=== PATIENT | female | born 1945 | race Caucasian/White ===

== ENCOUNTER 2018-04-28 16:16 | Inpatient (IN) | payer MEDICARE, OTHER ==
[~2018-04-28] VITALS: Ht 160 cm; Wt 81.7 kg
[~2018-04-28 16:16] MED LIST: ACET325 PO; ASPI325 PO; CEPH250A PO; CEPH500 PO; CIME400 PO; COLCRYS0.6 MG PO; Cipro500 MG PO; FERR325 PO; FLUO20 PO; FLUOXETINE PO; Flagyl500 MG PO; HYDACE5325 PO; HYDCHL12.5 PO; IRON PO; IRON325 MG PO; L-THYROXINE PO; LEVSOD100 PO; LISI20 PO; LOPE2C PO; LOVA20 PO; LOVA40 PO; Levothyroxine200 MCG PO; NAPR500 PO; Norco 5-325 Ta1 EACH PO; OMEP20ER PO; POTA8 PO; POTASSIUM GLU2.5 MEQ PO; PROM25 PO; Prednisone20 MG PO; Prozac20 MG PO; [UNRECOGNIZED DRUG - OTHER] PO
[2018-05-04 04:41] LABS: BASOPHILS ABSOLUTE AUTO 0.02 K/mm3 (0.00-0.23); BASOPHILS PERCENT AUTO 0 % (0-2); EOSINOPHILS PERCENT AUTO 0 % (0-6); Hematocrit 28.7 % (33.0-51.0); Hemoglobin 9.4 g/dL (11.5-16.0); IMMATURE GRAN ABSOLUTE AUTO 0.03 K/mm3 (0.00-0.10); IMMATURE GRAN PERCENT AUTO 0 % (0-1); LYMPHOCYTES ABSOLUTE AUTO 0.92 K/mm3 (0.84-5.20); LYMPHOCYTES PERCENT AUTO 8 % (21-46); MONOCYTES ABSOLUTE AUTO 0.66 K/mm3 (0.16-1.47); MONOCYTES PERCENT AUTO 6 % (4-13); Mean Corpuscular HGB 29.1 pg (26.0-34.0); Mean Corpuscular HGB Conc 32.8 g/dL (31.5-36.5); Mean Corpuscular Volume 89 fL (80-100); Mean Platelet Volume 9.3 fL (9.1-12.4); NEUTROPHILS ABSOLUTE AUTO 10.05 K/mm3 (1.96-9.15); NEUTROPHILS PERCENT AUTO 86 % (41-73); Platelet Count 267 K/mm3 (150-400); RDW Coefficient Variation 13.9 % (11.7-14.2); RDW Standard Deviation 45.3 fL (35.1-46.3); Red Blood Cell Count 3.23 M/mm3 (3.80-5.20); White Blood Cell Count 11.68 K/mm3 (4.00-11.30)
[2018-05-04 04:58] LABS: Anion Gap 6 mmol/L (6-16); Blood Urea Nitrogen 17 mg/dL (8-24); Bun/Creatinine Ratio 21.8 (12.0-20.0); CO2, Blood 29 mmol/L (21-32); Calcium, Blood 8.4 mg/dL (8.5-10.1); Chloride, Blood 102 mmol/L (98-108); Creatinine, Blood 0.78 mg/dL (0.40-1.00); Glomerular Filtration Rate >60 (60-); Glucose, Blood 116 mg/dL (70-99); Potassium, Blood 3.2 mmol/L (3.5-5.5); Sodium, Blood 137 mmol/L (136-145)
[2018-05-04] MEDS ORDERED: XARELTO10 MG PO (13:30)
[2018-05-04] MEDS ORDERED: OXYC5 PO (13:31)
== END 2018-05-04 16:03 | disposition home or self-care (01) | DRG 470 ==
LOC: SURS 05-03 07:04 → PRE IP 05-03 08:30 → SURS 05-03 12:30
PROVIDERS: Orthopaedic Surgery
PROC: 0SR902Z Replacement of Right Hip Joint with Metal on Polyethylene Synthetic Substitute, Open Approach (ICD-10-PCS; principal; 2018-05-03 08:30)
DX: M16.11 Unilateral primary osteoarthritis, right hip (principal); E78.5 Hyperlipidemia, unspecified; E03.9 Hypothyroidism, unspecified; I12.9 Hypertensive chronic kidney disease with stage 1 through stage 4 chronic kidney disease, or unspecified chronic kidney disease; K21.9 Gastro-esophageal reflux disease without esophagitis; D64.9 Anemia, unspecified; I73.9 Peripheral vascular disease, unspecified; N18.3 Chronic kidney disease, stage 3 (moderate); F17.210 Nicotine dependence, cigarettes, uncomplicated
CPT/HCPCS: 36415; 72170; 80048; 85025; 86850; 86900; 86901; 88300; 97110; 97116; 97162; 97530; C1713; C1776; G8978; G8979; J0690; J0735; J1100; J2250; J2405; J2710; J2765; J2795; J3010; J7120

== ENCOUNTER 2018-05-19 10:35 | Emergency (ER) | payer MEDICARE, OTHER ==
[~2018-05-19] VITALS: Ht 160 cm; Wt 76.7 kg
[~2018-05-19 10:35] MED LIST changes: +NAPR550 PO; +OXYC5 PO; +XARELTO10 MG PO
[2018-05-19 11:10] LABS: BASOPHILS ABSOLUTE AUTO 0.08 K/mm3 (0.00-0.23); BASOPHILS PERCENT AUTO 1 % (0-2); EOSINOPHILS ABSOLUTE AUTO 0.05 K/mm3 (0.00-0.68); EOSINOPHILS PERCENT AUTO 0 % (0-6); Hemoglobin 9.8 g/dL (11.5-16.0); IMMATURE GRAN ABSOLUTE AUTO 0.13 K/mm3 (0.00-0.10); IMMATURE GRAN PERCENT AUTO 1 % (0-1); LYMPHOCYTES ABSOLUTE AUTO 0.99 K/mm3 (0.84-5.20); LYMPHOCYTES PERCENT AUTO 6 % (21-46); MONOCYTES ABSOLUTE AUTO 0.61 K/mm3 (0.16-1.47); MONOCYTES PERCENT AUTO 4 % (4-13); Mean Corpuscular HGB 28.9 pg (26.0-34.0); Mean Corpuscular HGB Conc 32.7 g/dL (31.5-36.5); Mean Corpuscular Volume 89 fL (80-100); Mean Platelet Volume 9.4 fL (9.1-12.4); NEUTROPHILS ABSOLUTE AUTO 14.86 K/mm3 (1.96-9.15); NEUTROPHILS PERCENT AUTO 89 % (41-73); Platelet Count 699 K/mm3 (150-400); RDW Coefficient Variation 14.3 % (11.7-14.2); RDW Standard Deviation 46.2 fL (35.1-46.3); Red Blood Cell Count 3.39 M/mm3 (3.80-5.20); White Blood Cell Count 16.72 K/mm3 (4.00-11.30)
[2018-05-19 11:22] LABS: International Normalized Ratio 1.07
[2018-05-19 11:27] LABS: Alanine Aminotransfer (ALT/SGP 22 U/L (12-78); Albumin, Blood 3.3 g/dL (3.4-5.0); Albumin/Globulin Ratio 0.7 (0.8-1.8); Alk Phos 49 U/L (50-136); Anion Gap 13 mmol/L (6-16); Aspartate Aminotrans (AST/SGOT 19 U/L (12-37); Bilirubin, Total 0.4 mg/dL (0.1-1.0); Blood Urea Nitrogen 22 mg/dL (8-24); Bun/Creatinine Ratio 24.1 (12.0-20.0); CO2, Blood 25 mmol/L (21-32); Calcium, Blood 9.6 mg/dL (8.5-10.1); Chloride, Blood 100 mmol/L (98-108); Creatinine, Blood 0.91 mg/dL (0.40-1.00); Globulin, Blood 4.6 g/dL (2.2-4.0); Glomerular Filtration Rate >60 (60-); Glucose, Blood 107 mg/dL (70-99); Sodium, Blood 138 mmol/L (136-145); Total Protein, Blood 7.9 g/dL (6.4-8.2); Troponin I <0.015 ng/mL (0.000-0.040)
== END 2018-05-19 16:20 | disposition home or self-care (01) ==
LOC: ER 10:35
PROVIDERS: Emergency Medicine
DX: R06.02 Shortness of breath (principal); Z88.8 Allergy status to other drugs, medicaments and biological substances; Z79.899 Other long term (current) drug therapy; E85.3 Secondary systemic amyloidosis; D64.9 Anemia, unspecified; I12.9 Hypertensive chronic kidney disease with stage 1 through stage 4 chronic kidney disease, or unspecified chronic kidney disease; N18.9 Chronic kidney disease, unspecified; E03.9 Hypothyroidism, unspecified; F17.210 Nicotine dependence, cigarettes, uncomplicated
CPT/HCPCS: 36415; 71046; 71260; 80053; 84484; 85025; 85610; 93005; 93010; 99284; Q9967

== ENCOUNTER → 2019-07-04 | Outpatient (CLI) | payer MEDICARE, OTHER ==
[2019-07-04 19:23] LABS: Percent Saturation 7.2 % (15.0-50.0)
== END | disposition home or self-care (01) ==
LOC: LAB SHORT 18:22 → LAB 18:22
PROVIDERS: Internal Medicine Hematology & Oncology
DX: D51.8 Other vitamin B12 deficiency anemias (principal); D64.9 Anemia, unspecified
CPT/HCPCS: 82607; 82728; 82746; 83540; 83550

== ENCOUNTER 2019-07-07 11:47 | Emergency (ER) | payer MEDICARE, OTHER ==
[~2019-07-07] VITALS: Ht 167.6 cm; Wt 73.5 kg
[2019-07-07 15:04] LABS: Body Fluid Crystals NEG (NEGATIVE)
[2019-07-07 16:34] LABS: RBC Count, Synovial Fluid 100 /mm3 (0-0)
[2019-07-07 16:37] LABS: WBC Count, Synovial Fluid 37400 /mm3 (0-180)
[2019-07-07 16:45] LABS: Neutrophils, Synovial Fluid 100 % (0-24)
[2019-07-07 16:50] LABS: Appearance, Synovial Fluid Cloudy (Clear); Color, Synovial Fluid Yellow (None-P Yel)
== END 2019-07-07 15:45 | disposition home or self-care (01) ==
LOC: ER 11:47
PROVIDERS: Emergency Medicine
DX: M17.11 Unilateral primary osteoarthritis, right knee (principal); I12.9 Hypertensive chronic kidney disease with stage 1 through stage 4 chronic kidney disease, or unspecified chronic kidney disease; N18.9 Chronic kidney disease, unspecified; D64.9 Anemia, unspecified; E03.9 Hypothyroidism, unspecified; M19.90 Unspecified osteoarthritis, unspecified site; F17.210 Nicotine dependence, cigarettes, uncomplicated; Z88.8 Allergy status to other drugs, medicaments and biological substances; Z79.899 Other long term (current) drug therapy
CPT/HCPCS: 20610; 73562-RT; 87070; 87075; 87205; 89051; 89060; 99284-25; A9270

== ENCOUNTER → 2020-01-23 | Outpatient (CLI) | payer MEDICARE, OTHER ==
[2020-01-23 15:15] LABS: Albumin, Blood 3.2 g/dL (3.4-5.0); Anion Gap 2 mmol/L (6-16); Blood Urea Nitrogen 19 mg/dL (8-24); Bun/Creatinine Ratio 24.8 (12.0-20.0); CO2, Blood 30 mmol/L (21-32); Calcium, Blood 9.5 mg/dL (8.5-10.1); Chloride, Blood 103 mmol/L (98-108); Creatinine, Blood 0.77 mg/dL (0.40-1.00); Glomerular Filtration Rate >60 (60-); Glucose, Blood 84 mg/dL (70-99); Magnesium, Blood 2.2 mg/dL (1.6-2.4); Phosphorus, Blood 3.9 mg/dL (2.5-4.9); Potassium, Blood 3.7 mmol/L (3.5-5.5); Sodium, Blood 135 mmol/L (136-145)
[2020-01-23 15:17] LABS: Cholesterol 194 mg/dL (50-200); HDL Cholesterol 49 mg/dL (>39); LDL/HDL RATIO 2.6; Low Density Lipoprotein Chol 126 mg/dL (0-110); Triglycerides 96 mg/dL (30-160); Very Low Density Lipoprot Chol 19 mg/dL (6-32)
== END ==
LOC: LAB SHORT 13:14
PROVIDERS: Internal Medicine; Registered Nurse
DX: N18.3 Chronic kidney disease, stage 3 (moderate) (principal); E03.9 Hypothyroidism, unspecified; E78.5 Hyperlipidemia, unspecified
CPT/HCPCS: 36415; 80061; 80069; 83735; 84443

== ENCOUNTER → 2020-01-24 | Outpatient (CLI) | payer MEDICARE, OTHER ==
[2020-01-24 18:06] LABS: Bilirubin, Urine Neg (Neg); Blood, Urine 1+ (Neg); Glucose Qualitative, Urine Neg (Neg); Ketones, Urine Neg (Neg); Leukocyte Esterase, Urine 1+ (Neg); Nitrite, Urine Pos (Neg); Protein, Urine Neg (Neg); Specific Gravity, Urine 1.005 (1.003-1.022); Urobilinogen, Urine NORM (Normal)
[2020-01-24 18:22] LABS: Appearance, Urine Hazy (Clear); Color, Urine Pale Yellow (P-Yellow)
[2020-01-24 18:23] LABS: Bacteria Many /hpf; Red Blood Cells, Urine 0-2 /hpf (0-2); Squamous Epithelial Cells Few /hpf (Few)
== END | disposition home or self-care (01) ==
LOC: LAB SRC 13:00 → LAB SHORT 13:00 → LAB FUT 10-03 12:20 → EDSTATUS 10-03 12:20
PROVIDERS: Internal Medicine
DX: N18.3 Chronic kidney disease, stage 3 (moderate) (principal)
CPT/HCPCS: 81001

== ENCOUNTER 2020-05-16 11:45 | Emergency (ER) | payer MEDICARE, OTHER ==
[~2020-05-16] VITALS: Ht 157.5 cm; Wt 63.5 kg
[~2020-05-16 11:45] MED LIST changes: +Ferrous Sulfat325 M2 PO; -LOVA40 PO; +MAGNESIUM250 MG PO; +POTCHL20ER PO; +PROZAC20 MG PO; +THERA-D2000 UNIT PO; +VITAMIN D350 MCG PO; +Voltaren100 GM TOP
[2020-05-16] MEDS ORDERED: AMOCLA875 PO (12:28)
== END 2020-05-16 12:50 | disposition home or self-care (01) ==
LOC: ER 11:45
DX: L03.113 Cellulitis of right upper limb (principal); I89.0 Lymphedema, not elsewhere classified; Z90.11 Acquired absence of right breast and nipple; I12.9 Hypertensive chronic kidney disease with stage 1 through stage 4 chronic kidney disease, or unspecified chronic kidney disease; N18.3 Chronic kidney disease, stage 3 (moderate); D50.9 Iron deficiency anemia, unspecified; Z85.3 Personal history of malignant neoplasm of breast; E03.9 Hypothyroidism, unspecified; E78.5 Hyperlipidemia, unspecified; F17.210 Nicotine dependence, cigarettes, uncomplicated; Z79.899 Other long term (current) drug therapy
CPT/HCPCS: J2550; J3010

== ENCOUNTER 2020-05-18 11:06 | Inpatient (IN) | payer MEDICARE, OTHER ==
[~2020-05-18] VITALS: Ht 157.5 cm; Wt 80.8 kg
[~2020-05-18 11:06] MED LIST changes: +AMOCLA875 PO
[2020-05-18 12:16] LABS: BASOPHILS ABSOLUTE AUTO 0.04 K/mm3 (0.00-0.23); BASOPHILS PERCENT AUTO 0 % (0-2); EOSINOPHILS ABSOLUTE AUTO 0.04 K/mm3 (0.00-0.68); EOSINOPHILS PERCENT AUTO 0 % (0-6); Hemoglobin 10.4 g/dL (11.5-16.0); IMMATURE GRAN ABSOLUTE AUTO 0.04 K/mm3 (0.00-0.10); IMMATURE GRAN PERCENT AUTO 0 % (0-1); LYMPHOCYTES ABSOLUTE AUTO 1.36 K/mm3 (0.84-5.20); LYMPHOCYTES PERCENT AUTO 12 % (21-46); MONOCYTES ABSOLUTE AUTO 0.91 K/mm3 (0.16-1.47); MONOCYTES PERCENT AUTO 8 % (4-13); Mean Corpuscular HGB 27.7 pg (26.0-34.0); Mean Corpuscular HGB Conc 30.6 g/dL (31.5-36.5); Mean Corpuscular Volume 90 fL (80-100); Mean Platelet Volume 9.8 fL (9.1-12.4); NEUTROPHILS ABSOLUTE AUTO 9.41 K/mm3 (1.96-9.15); NEUTROPHILS PERCENT AUTO 80 % (41-73); Platelet Count 358 K/mm3 (150-400); RDW Coefficient Variation 14.6 % (11.7-14.2); RDW Standard Deviation 49.1 fL (35.1-46.3); Red Blood Cell Count 3.76 M/mm3 (3.80-5.20)
[2020-05-18 12:33] LABS: Bun/Creatinine Ratio 25.5 (12.0-20.0); Calcium, Blood 9.1 mg/dL (8.5-10.1); Creatinine, Blood 1.06 mg/dL (0.40-1.00); Potassium, Blood 3.7 mmol/L (3.5-5.5)
[2020-05-18] MEDS ORDERED: Lovastatin20 MG PO (13:20)
[2020-05-18] MEDS ORDERED: OMEP20ER PO (13:21)
[2020-05-18] MEDS ORDERED: GABAPENTIN600 MG PO (13:21)
[2020-05-18] MEDS ORDERED: Ventolin/Prove6.7 GM INH (13:22)
[2020-05-18] MEDS ORDERED: HYDR1TAB94 PO (14:00)
[2020-05-18] MEDS ORDERED: AMOCLA875 PO (14:01)
--- NOTE | 2020-05-18 17:51 | NUR ---
SHIFT SUMMARY PT ADMITTED FROM THE ER A/O X 4 WITH NO C/O PAIN. WHEN ASKED SHE DOES RATE HER RIGHT HAND PAIN AT AN 8/10 AND PAIN MEDS WERE GIVEN ORDERED. HER BP IS LOW AND SHE IS ASYMPTOMATIC, THE ER DR NOTED THAT SHE WAS AWARE OF THE HYPOTENSION AND SHE WAS GIVEN MIDODRINE ORDERED. HER DAUGHTER WHO IS ALSO HER CAREGIVER IS AT THE BEDSIDE. THE PT HAS WRAPS ON BOTH OF HER LEGS THAT SHE REPORTS IS DONE BY A PRACTITIONER AT [facility] IN AN ATTEMPT TO DECREASE THE CHRONIC EDEMA AND SHE ASKED THAT WE LEAVE THEM ON SINCE SHE JUST HAD THEM DONE AND ONLY HAS THEM WRAPPED ONCE A WEEK. THE PT IS W/C AT BASELINE TO DUE THE ONGOING AND CHRONIC SWELLING IN HER LEGS. SHE HAS A HX TO BREAST CANCER WITH LYMPH NODE REMOVAL IN THE RIGHT ARM SO THERES NO BP BEING TAKEN ON HER RIGHT SIDE, THIS IS ALSO THE ARM WITH THE CURRENT CELLULITIS WHICH IS WARM AND SWOLLEN FROM HER HAND TO HER ELBOW AND IS OUTLINED IN MARKER FROM THE ER. SHE IS VERY PLEASANT AND COOPERATIVE WITH HER CARE. DINNER WAS ORDERED AND SHE IS RETSING IN BED WITH HER CALL LIGHT IN REACH.
[2020-05-19 06:04] LABS: BASOPHILS ABSOLUTE AUTO 0.06 K/mm3 (0.00-0.23); BASOPHILS PERCENT AUTO 1 % (0-2); EOSINOPHILS ABSOLUTE AUTO 0.19 K/mm3 (0.00-0.68); EOSINOPHILS PERCENT AUTO 3 % (0-6); Hematocrit 28.6 % (33.0-51.0); Hemoglobin 8.6 g/dL (11.5-16.0); IMMATURE GRAN ABSOLUTE AUTO 0.02 K/mm3 (0.00-0.10); IMMATURE GRAN PERCENT AUTO 0 % (0-1); LYMPHOCYTES PERCENT AUTO 18 % (21-46); MONOCYTES ABSOLUTE AUTO 0.59 K/mm3 (0.16-1.47); MONOCYTES PERCENT AUTO 9 % (4-13); Mean Corpuscular HGB Conc 30.1 g/dL (31.5-36.5); Mean Platelet Volume 10.8 fL (9.1-12.4); NEUTROPHILS ABSOLUTE AUTO 4.46 K/mm3 (1.96-9.15); NEUTROPHILS PERCENT AUTO 69 % (41-73); Platelet Count 311 K/mm3 (150-400); RDW Coefficient Variation 14.8 % (11.7-14.2); RDW Standard Deviation 51.2 fL (35.1-46.3); Red Blood Cell Count 3.07 M/mm3 (3.80-5.20); White Blood Cell Count 6.52 K/mm3 (4.00-11.30)
[2020-05-19 06:08] LABS: Mean Corpuscular Volume 93 fL (80-100)
[2020-05-19 06:20] LABS: Bun/Creatinine Ratio 24.3 (12.0-20.0); Creatinine, Blood 1.11 mg/dL (0.40-1.00); Potassium, Blood 3.7 mmol/L (3.5-5.5)
--- NOTE | 2020-05-19 06:38 | NUR ---
SHIFT SUMMARY- PT. PLEASANT AND COOPERATIVE WITH CARE. HX OF CHRONIC BP IN THE 80'S AND 60'S. LAST NIGHT BP IN THE 70'S SYS AND 40'S RUSSO. PT. ASYMPTOMATIC, DENIED ANY DISCOMFORT OR FEELING DIFFERENT. NOTIFIED PROVIDER, PT. RECEIVED 500ML BOLUS WITH SLIGHT IMPROVEMENT IN THE FIRST BP CHECK. FOLLOWING VSS, AT PT. BASELINE. PT. C/O PAIN TO RT HAND AND LEGS. MEDICATED PER EMAR WITH GOOD EFFECT. CALL LIGHT WITHIN REACH AND SIDE RAILS UP X2. WILL CONT TO MONITOR.
--- NOTE | 2020-05-19 17:17 | NUR ---
Shift Summary A/Ox4, pleasant 74yo lady who is very cooperative with care. Calls appropriately. Denies pain that is not tolerable. Medicated with scheduled Toradol with good results. Pt instructed to elevate R hand/arm to minimize swelling. Erythema in affected hand/arm seems to be improving. Julia (granddaughter) has been at bedside this afternoon. No other acute concerns. Uneventful shift.
[2020-05-20 05:30] LABS: Anion Gap 7 mmol/L (6-16); Blood Urea Nitrogen 24 mg/dL (8-24); Bun/Creatinine Ratio 28.3 (12.0-20.0); CO2, Blood 22 mmol/L (21-32); Calcium, Blood 8.4 mg/dL (8.5-10.1); Chloride, Blood 108 mmol/L (98-108); Creatinine, Blood 0.85 mg/dL (0.40-1.00); Glomerular Filtration Rate >60 (60-); Glucose, Blood 75 mg/dL (70-99); Potassium, Blood 3.8 mmol/L (3.5-5.5); Sodium, Blood 137 mmol/L (136-145)
--- NOTE | 2020-05-20 05:46 | NUR ---
SHIFT SUMMARY- NO ACUTE EVENTS OVERNIGHT. PT. ASLEEP T/O THE NIGHT. NO APPARENT DISTRESS NOTED. PT. CONTS TO BE HYPOTENSIVE BUT ASYMPTOMATIC. DENIED THE NEED FOR PAIN MEDS THIS SHIFT. PT. ANTICIPATES D/C TODAY. CALL LIGHT WITHIN REACH AND SIDE RAILS UP X2. WILL CONT TO MONITOR.
[2020-05-20 06:14] LABS: BASOPHILS ABSOLUTE AUTO 0.06 K/mm3 (0.00-0.23); BASOPHILS PERCENT AUTO 1 % (0-2); EOSINOPHILS PERCENT AUTO 3 % (0-6); Hematocrit 31.6 % (33.0-51.0); Hemoglobin 9.4 g/dL (11.5-16.0); IMMATURE GRAN ABSOLUTE AUTO 0.02 K/mm3 (0.00-0.10); IMMATURE GRAN PERCENT AUTO 0 % (0-1); LYMPHOCYTES ABSOLUTE AUTO 1.16 K/mm3 (0.84-5.20); LYMPHOCYTES PERCENT AUTO 14 % (21-46); MONOCYTES ABSOLUTE AUTO 0.36 K/mm3 (0.16-1.47); MONOCYTES PERCENT AUTO 4 % (4-13); Mean Corpuscular HGB 27.7 pg (26.0-34.0); Mean Corpuscular HGB Conc 29.7 g/dL (31.5-36.5); Mean Corpuscular Volume 93 fL (80-100); Mean Platelet Volume 10.4 fL (9.1-12.4); NEUTROPHILS ABSOLUTE AUTO 6.31 K/mm3 (1.96-9.15); NEUTROPHILS PERCENT AUTO 78 % (41-73); Platelet Count 350 K/mm3 (150-400); RDW Standard Deviation 51.5 fL (35.1-46.3); Red Blood Cell Count 3.39 M/mm3 (3.80-5.20); White Blood Cell Count 8.11 K/mm3 (4.00-11.30)
--- NOTE | 2020-05-20 18:28 | NUR ---
SHIFT SUMMARY PT IS ALERT AND ORIENTED, FOLLOWS COMMANDS. PT TOLERATED BEING OUT OF BED FOR MEALS. RIGHT HAND/ARM IS NOTED TO BE IMPROVING AND PT IS TOLERATING IV ABX. PT HAS BEEN A 1 PERSON ASSIST TO BSC. EARLY AFTERNOON PT REPORTED PAIN TO RIGHT UPPER ARM, WITH IMPROVEMENT AFTER PRN PAIN MED. VITALS HAVE REMAINED STABLE.
--- NOTE | 2020-05-21 05:18 | NUR ---
SHIFT SUMMARY PT A/OX4 WITH VSS. NO ACUTE EVENTS T/O SHIFT. ABX INFUSED PER ORDERS. DENIES NEED FOR PAIN MEDICATION. LACEY PO INTAKE. USING BSC WITH 1 PERSON ASSIST. APPEARS TO HAVE SLEPT WELL T/O SHIFT. PT APPEARS TO CURRENTLY BE SLEEPING IN BED WITH CALL LIGHT IN REACH. IS ANTICIPATING POSSIBLE DISCHARGE HOME TODAY. WILL CONT TO MONITOR AND GIVE REPORT TO ONCOMING RN.
[2020-05-21] MEDS ORDERED: ACET325 PO (12:09)
[2020-05-21] MEDS ORDERED: CEPH500 PO (12:10)
[2020-05-21] MEDS ORDERED: ONDA4ODT MM (12:10)
[2020-05-21] MEDS ORDERED: DOCU100 PO (12:10)
[2020-05-21] MEDS ORDERED: ACIDOPHILUS1 EAC3 PO (12:11)
--- NOTE | 2020-05-21 13:00 | NUR ---
DISCHARGE INSTRUCTIONS GONE OVER WITH PT AND FAMILY. PT DECLINED DELAYING DISCHARGE FOR RN TO SCHEDULE FOLLOW UP APPOINTMENT WITH PCP. INSTRUCTED PT ON NEW MEDICATIONS AND THAT THEY WERE FAXED TO PREFERED PHARMACY. PT AND FAMILY STATED UNDERSTANDING. BELONGINGS WERE GATHERED AND SENT WITH PT. PT LEFT WITH FAMILY IN PERSONAL WHEELCHAIR.
== END 2020-05-21 13:03 | disposition home or self-care (01) | DRG 603 ==
LOC: ER 11:06 → MEDS 11:07
PROVIDERS: Emergency Medicine; Family Medicine; Nurse Practitioner Acute Care; ADMIT Internal Medicine
DX: L03.113 Cellulitis of right upper limb (principal); E89.0 Postprocedural hypothyroidism; F17.210 Nicotine dependence, cigarettes, uncomplicated; I89.0 Lymphedema, not elsewhere classified; N18.3 Chronic kidney disease, stage 3 (moderate); Z85.3 Personal history of malignant neoplasm of breast; Z90.10 Acquired absence of unspecified breast and nipple; Z66 Do not resuscitate; E66.9 Obesity, unspecified; I95.9 Hypotension, unspecified; Z68.32 Body mass index [BMI] 32.0-32.9, adult; I12.9 Hypertensive chronic kidney disease with stage 1 through stage 4 chronic kidney disease, or unspecified chronic kidney disease
CPT/HCPCS: 36415; 73200; 80048; 83605; 85025; 87040; 96361; 96365; 96366; 96367; 96372; 96372-59; 96375; 96376; 97110; 97162; 97530-CQ; 99284-25; A9270-GY; G0378; J0690; J1170; J1650; J1885; J2405; J2543; J3010; J3480; J7030; J7040; J7050

== ENCOUNTER → 2022-11-06 | Outpatient (CLI) | payer MEDICARE, OTHER ==
[~2022-11-06] MED LIST changes: +ACIDOPHILUS1 EAC3 PO; +Cleocin HCl300 MG PO; +DOCU100 PO; +GABAPENTIN600 MG PO; +HYDR1TAB94 PO; +Lovastatin20 MG PO; +ONDA4ODT MM; +Ventolin/Prove6.7 GM INH
[2022-11-06 12:02] LABS: Source, Urine Clean Catch
[2022-11-06 15:39] LABS: Appearance, Urine Cloudy (Clear); Bilirubin, Urine Neg (Neg); Blood, Urine 3+ (Neg); Color, Urine Yellow (P-Yellow); Glucose Qualitative, Urine Neg (Neg); Ketones, Urine 3+ (Neg); Leukocyte Esterase, Urine 3+ (Neg); Nitrite, Urine Pos (Neg); Protein, Urine 2+ (Neg); Specific Gravity, Urine 1.015 (1.003-1.022); Urobilinogen, Urine NORM (Normal)
[2022-11-06 17:35] LABS: Amorphous Light (0-Heavy); Bacteria Many /hpf; Mucus Light (0-Heavy); Red Blood Cells, Urine 0-2 /hpf (0-2); Squamous Epithelial Cells Many /hpf (Few); White Blood Cells, Urine TNTC /hpf (0-5)
== END | disposition home or self-care (01) ==
LOC: LAB SHORT 11:30 → LAB 11:30
PROVIDERS: Registered Nurse
DX: N39.0 Urinary tract infection, site not specified (principal)
CPT/HCPCS: 81001

== ENCOUNTER 2023-07-14 07:15 | Day surgery (SDC) | payer MEDICARE, OTHER ==
[~2023-07-14] VITALS: Ht 157.5 cm; Wt 68.0 kg
[2023-07-14] MEDS ORDERED: LEVOTHYROXINE200 MCG PO (08:19)
--- NOTE | 2023-07-14 08:33 | NUR ---
07/14/23 0833 TAYLOR KLEIN TETRACAINE INTO RIGHT EYE AT 0816, PLEDGETT INTO RIGHT EYE AT 0818. CALL LIGHT WITHIN REACH. PRE-OP EDUCATION PROVIDED, NO FURTHER QUESTIONS. PT a&O X4, PLEASANT AND COOPERATIVE WITH CARE.
[2023-07-14 09:45] VITALS: BP 65/60
--- NOTE | 2023-07-14 09:49 | NUR ---
07/14/23 0949 Bridget Aguilar IV DC'D WITH 300ML LEFT IN THE BAG. IV WNL, PT TOLERATED WELL. PT TAKEN TO GRAND DAUGHTERS CAR VIA HER PERSONAL WHEELCHAIR. PT SENT HOME WITH SHIELD AND DARK GLASSES.
== END 2023-07-14 09:44 | disposition home or self-care (01) ==
LOC: ORSCSDS 07:15
PROVIDERS: Student in an Organized Health Care Education/Training Program
PROC: 08RJ3JZ Replacement of Right Lens with Synthetic Substitute, Percutaneous Approach (ICD-10-PCS; principal; 2023-07-14 09:00)
DX: H25.13 Age-related nuclear cataract, bilateral (principal); J44.9 Chronic obstructive pulmonary disease, unspecified; K21.9 Gastro-esophageal reflux disease without esophagitis; M19.90 Unspecified osteoarthritis, unspecified site; E78.5 Hyperlipidemia, unspecified; I12.9 Hypertensive chronic kidney disease with stage 1 through stage 4 chronic kidney disease, or unspecified chronic kidney disease; N18.30 Chronic kidney disease, stage 3 unspecified; F17.210 Nicotine dependence, cigarettes, uncomplicated; Z79.899 Other long term (current) drug therapy
CPT/HCPCS: J2250; J3010; J3301; J7040; V2632

== ENCOUNTER 2023-07-28 07:49 | Day surgery (SDC) | payer MEDICARE, OTHER ==
[~2023-07-28] VITALS: Ht 157.5 cm; Wt 68.2 kg
[~2023-07-28 07:49] MED LIST changes: +LEVOTHYROXINE200 MCG PO
--- NOTE | 2023-07-28 08:30 | NUR ---
07/28/23 0830 Samia Carlson TETRACAINE IN LEFT EYE AT 0811. PLEDGET PLACED IN LEFT EYE AT 0812. PATIENT TOLERATED WELL.
--- NOTE | 2023-07-28 09:21 | NUR ---
07/28/23 0921 DALILA BERGER IV REMOVED. WNL. LACEY WELL. CANNULA INTACT
[2023-07-28 09:29] VITALS: BP 111/75
== END 2023-07-28 09:41 | disposition home or self-care (01) ==
LOC: ORSCSDS 07:49
PROVIDERS: Student in an Organized Health Care Education/Training Program
PROC: 08RK3JZ Replacement of Left Lens with Synthetic Substitute, Percutaneous Approach (ICD-10-PCS; principal; 2023-07-28 09:00)
DX: H25.12 Age-related nuclear cataract, left eye (principal); Z96.1 Presence of intraocular lens; I12.9 Hypertensive chronic kidney disease with stage 1 through stage 4 chronic kidney disease, or unspecified chronic kidney disease; N18.30 Chronic kidney disease, stage 3 unspecified; J44.9 Chronic obstructive pulmonary disease, unspecified; E03.9 Hypothyroidism, unspecified; Z79.899 Other long term (current) drug therapy
CPT/HCPCS: J2250; J7040; V2632